=== PATIENT | female | born 1985 | race Caucasian/White ===

== ENCOUNTER 2016-07-17 12:27 | Inpatient (IN) | payer OTHER ==
[~2016-07-17] VITALS: Ht 162.6 cm; Wt 79.0 kg
[2016-07-17] VITALS (12 sets, daily range): BP systolic 115–135; BP diastolic 66–86
[2016-07-17] MEDS ORDERED: GLYBURIDE5 MG PO (14:43)
[2016-07-17 14:53] LABS: EOSINOPHIL (%) 0.8 % (0-5); EOSINOPHIL COUNT 0.1 K/uL (0-0.3); HEMATOCRIT 46.3 % (36.0-46.0); IMMATURE GRANULOCYTE COUNT 0.1 K/uL; INSTRUMENT ABS NEUTROPHIL CT 6.4 K/uL; LYMPHOCYTE COUNT 2.5 K/uL (1.0-2.8); MCH 30.8 PG (29.0-34.0); MCV 93.2 FL (83-99); MEAN PLAT.VOLUME 10.8 uM^3 (9.5-12.4); MONOCYTE (%) 6.5 % (3-12); MONOCYTE COUNT 0.6 K/uL (0-0.8); NEUTROPHIL (%) 65.3 % (45-76); NEUTROPHIL COUNT 6.4 K/uL (1.8-6.4); PLATELET COUNT 196 K/uL (156-360); RBC DIS.WIDTH-CV 12.7 % (11.8-14.6); RBC DIS.WIDTH-SD 43.4 % (39-53); RED BLOOD COUNT 4.97 M/uL (3.80-5.20); WHITE BLOOD COUNT 9.8 K/uL (4.1-10.2)
[2016-07-17 21:58] LABS: POINT-OF-CARE METER ID UU13113801
[2016-07-18] VITALS (27 sets, daily range): BP systolic 106–142; BP diastolic 54–95
[2016-07-18 01:31] LABS: POINT-OF-CARE METER ID UU13113801
[2016-07-18 02:18] LABS: POINT-OF-CARE METER ID UU13113801
[2016-07-18 03:24] LABS: POINT-OF-CARE METER ID UU13113801
[2016-07-18 04:13] LABS: POINT-OF-CARE METER ID UU13113801
[2016-07-18 04:59] LABS: POINT-OF-CARE METER ID UU13113801
[2016-07-18 06:08] LABS: POINT-OF-CARE METER ID UU13113801
[2016-07-18 07:18] LABS: POINT-OF-CARE METER ID UU13113801
[2016-07-18 08:24] LABS: POINT-OF-CARE METER ID UU13113801
[2016-07-18 09:26] LABS: POINT-OF-CARE METER ID UU13113801
[2016-07-18 10:12] LABS: POINT-OF-CARE METER ID UU13113801
[2016-07-18 11:15] LABS: POINT-OF-CARE METER ID UU13113801
[2016-07-18 13:25] LABS: POINT-OF-CARE METER ID UU13113801
[2016-07-19 07:32] VITALS: BP 113/65
[2016-07-19 15:26] VITALS: BP 142/65
[2016-07-19 23:00] VITALS: BP 124/77
[2016-07-20 07:27] VITALS: BP 134/87
[2016-07-20] MEDS ORDERED: IBUPROFEN800 MG PO (10:07)
== END 2016-07-20 15:45 | disposition home or self-care (01) | DRG 775 ==
LOC: LDRP-OP 12:27 → 2WEST 12:28 → LDRP-OP 08-19 15:19
PROVIDERS: Nurse Practitioner; Obstetrics & Gynecology
PROC: 3E0R3CZ (ICD-10-PCS; principal; 2016-07-18)
PROC: 10E0XZZ Delivery of Products of Conception, External Approach (ICD-10-PCS; principal; 2016-07-18)
PROC: 00HU33Z Insertion of Infusion Device into Spinal Canal, Percutaneous Approach (ICD-10-PCS; principal; 2016-07-18)
DX: O24.420 Gestational diabetes mellitus in childbirth, diet controlled (principal); Z37.0 Single live birth; Z3A.39 39 weeks gestation of pregnancy
CPT/HCPCS: 82948; 85025; C1755; G0378; J0595; J2795; J3010; J7120